=== PATIENT | male | born 1930 | race Caucasian/White ===

== ENCOUNTER 2017-08-24 14:21 | Emergency (ER) | payer MEDICARE, OTHER ==
[~2017-08-24] VITALS: Ht 172.7 cm; Wt 70.0 kg
[~2017-08-24 14:21] MED LIST: AMLO2.5T PO; ASPI-496 PO; CHLO25TA4 PO; DIVA125C3 PO; GABA600T2 PO; GLYB5TAB3 PO
[2017-08-24 14:42] LABS: MICROSCOPIC NOT IND
[2017-08-24] MEDS ORDERED: METO1TAB18 PO (14:45)
[2017-08-24] MEDS ORDERED: METF500T5 PO (14:45)
[2017-08-24 14:52] LABS: BASOPHILS # (AUTO) 0.02 x10^3/uL (0-0.1); BASOPHILS % (AUTO) 0 % (0-1); EOSINOPHILS # (AUTO) 0.01 x10^3/uL (0-0.4); EOSINOPHILS % (AUTO) 0 % (1-7); LYMPHOCYTES # (AUTO) 2.68 x10^3/uL (1-3.4); LYMPHOCYTES % (AUTO) 48 % (22-44); MD NO; MEAN CORPUSCULAR HEMOGLOBIN 29.7 pg (27.5-34.5); MEAN CORPUSCULAR HGB CONC 33.5 g/dL (33.2-36.2); MEAN CORPUSCULAR VOLUME 88.7 fL (81-97); MEAN PLATELET VOLUME 9.9 fL (7.4-10.4); MONOCYTES # (AUTO) 0.56 x10^3/uL (0.2-0.8); MONOCYTES % (AUTO) 10 % (2-9); NEUTROPHILS # (AUTO) 2.28 x10^3/uL (1.8-6.8); NEUTROPHILS % (AUTO) 41 % (42-75); PLATELET COUNT 118 x10^3/uL (130-400); RED BLOOD COUNT 4.95 x10^6/uL (4.38-5.82); RED CELL DISTRIBUTION WIDTH 14.1 % (9.4-14.8)
[2017-08-24 14:58] LABS: ALANINE AMINOTRANSFERASE 21 U/L (12-78); ALBUMIN 3.8 g/dL (3.4-5.0); ANION GAP 7 mmol/L (5-15); CALCIUM 9.3 mg/dL (8.5-10.1); CHLORIDE 107 mmol/L (98-107); CREATININE 0.85 mg/dL (0.7-1.3)
[2017-08-24 15:00] LABS: CULTURE INDICATED? NO
[2017-08-24 15:01] LABS: ALKALINE PHOSPHATASE 50 U/L (45-117); BILIRUBIN,TOTAL 0.8 mg/dL (0.2-1.0); TOTAL PROTEIN 6.9 g/dL (6.4-8.2)
[2017-08-24 16:48] VITALS: BP 144/94
== END 2017-08-24 17:13 | disposition home or self-care (01) ==
LOC: ED 17:05
DX: R10.84 Generalized abdominal pain (principal); E11.9 Type 2 diabetes mellitus without complications; I10 Essential (primary) hypertension; R35.0 Frequency of micturition
CPT/HCPCS: 36415; 80053; 81003; 83690; 85025; 99284